=== PATIENT | male | born 1960 | race Caucasian/White ===

== ENCOUNTER 2016-12-09 00:01 | Outpatient (RCR) | payer MEDICARE, MEDICAID, SELFPAY ==
[2009-07-07 12:35] VITALS: BP 154/86
[~2016-12-09 00:01] MED LIST: PHEN30TA41 PO
== END 2017-01-07 | disposition home or self-care (01) ==
LOC: IOPBV 00:01
PROVIDERS: ATTEND Psychiatry & Neurology Psychiatry
DX: F31.9 Bipolar disorder, unspecified (principal); R29.90 Unspecified symptoms and signs involving the nervous system
CPT/HCPCS: 90853

== ENCOUNTER → 2017-05-19 | Outpatient (CLI) | payer MEDICARE, MEDICAID ==
[~2017-05-19] MED LIST changes: +IOVERSOL 350 MG/ML 100 ML VIAL ONE; +IOVERSOL 350 MG/ML 150 ML VIAL ONE
== END | disposition home or self-care (01) ==
LOC: RADMN 08:28
PROVIDERS: ATTEND Internal Medicine Geriatric Medicine
DX: K80.20 Calculus of gallbladder without cholecystitis without obstruction (principal); K40.20 Bilateral inguinal hernia, without obstruction or gangrene, not specified as recurrent; K76.89 Other specified diseases of liver; K56.41 Fecal impaction
CPT/HCPCS: 74177; Q9967

== ENCOUNTER → 2017-07-21 | Outpatient (CLI) | payer MEDICARE, OTHER ==
[~2017-07-21] MED LIST changes: -IOVERSOL 350 MG/ML 100 ML VIAL ONE; -IOVERSOL 350 MG/ML 150 ML VIAL ONE
== END | disposition home or self-care (01) ==
LOC: LABMN 10:30
PROVIDERS: ATTEND Psychiatry & Neurology Psychiatry
DX: F31.2 Bipolar disorder, current episode manic severe with psychotic features (principal)

== ENCOUNTER → 2018-04-30 | Outpatient (CLI) | payer MEDICARE, OTHER | END | disposition home or self-care (01) | LOC: RADPV 10:40 | PROVIDERS: ATTEND Internal Medicine Geriatric Medicine | DX: R10.9 Unspecified abdominal pain (principal) | CPT/HCPCS: 74018 ==

== ENCOUNTER → 2019-01-11 | Outpatient (CLI) | payer MEDICARE, OTHER | END | disposition home or self-care (01) | LOC: LABMN 01-08 13:00 | PROVIDERS: ATTEND Psychiatry & Neurology Psychiatry | DX: Z51.81 Encounter for therapeutic drug level monitoring (principal) ==

== ENCOUNTER → 2019-12-02 | Outpatient (CLI) | payer MEDICARE, OTHER | END | disposition home or self-care (01) | LOC: RADMN 15:46 | PROVIDERS: ATTEND Internal Medicine Geriatric Medicine | DX: R07.81 Pleurodynia (principal) | CPT/HCPCS: 71111 ==

== ENCOUNTER → 2020-06-19 | Outpatient (CLI) | payer MEDICARE, OTHER ==
[2020-06-19 17:46] LABS: HEMOGLOBIN A1C 5.3 % (3.8-5.6)
== END | disposition home or self-care (01) ==
LOC: LABPV 12:52
PROVIDERS: ATTEND Psychiatry & Neurology Psychiatry
DX: F31.32 Bipolar disorder, current episode depressed, moderate (principal); E78.5 Hyperlipidemia, unspecified; Z79.891 Long term (current) use of opiate analgesic
CPT/HCPCS: 82947; 83036

== ENCOUNTER → 2021-03-26 | Outpatient (CLI) | payer MEDICARE, OTHER ==
[~2021-03-26] MED LIST changes: +PHEN30TA PO; -PHEN30TA41 PO
== END | disposition home or self-care (01) ==
LOC: LABMN 12:04
PROVIDERS: ATTEND Psychiatry & Neurology Psychiatry
DX: F31.32 Bipolar disorder, current episode depressed, moderate (principal)
CPT/HCPCS: 80164